=== PATIENT | female | born 1950 | race Caucasian/White ===

== ENCOUNTER 2016-07-27 07:47 | Day surgery (SDC) | payer MEDICARE ==
[2016-07-27] VITALS (8 sets, daily range): BP systolic 114–157; BP diastolic 83–98; PULSE 57–68; RESP 18–20; TEMP 97.5; O2SAT 92–98
[~2016-07-27] VITALS: Ht 170.2 cm; Wt 70.5 kg
[~2016-07-27 07:47] MED LIST: ALPR0.25 PO; AMLO10TA2 PO; CALC600T13 PO; CLON.1 PO; MOTR200T4 PO; ROSU40 PO
[2016-07-27] MEDS ORDERED: MULT-65 PO (08:38)
[2016-07-27 09:16] LABS: INTERNATIONAL NORMALIZED RATIO 0.9 RATIO; PROTHROMBIN TIME - PATIENT 10.2 SEC (9.8-11.6)
[2016-07-27] MEDS ORDERED: SODIUM CHLOR 0.9% 1000 ML IV SCH (10:00)
[2016-07-27] MEDS ORDERED: fentaNYL CITRATE 250 MCG/5 ML AMP ONE (11:05)
[2016-07-27] MEDS ORDERED: MIDAZOLAM HCL 5 MG/5 ML VIAL ONE (11:05)
--- NOTE | 2016-07-27 12:50 | RADRPT ---
EXAM DATE/TIME: 07/27/2016 12:35 [facility] COMPARISON: CT NEEDLE BIOPSY LUNG, LEFT, July 27, 2016, 11:14. INDICATIONS : Post left upper lobe lung biopsy. MEDICAL HISTORY : Hypertension. Aneurysm, abdominal. Uterine cancer. SURGICAL HISTORY : Pelvic surgery. ENCOUNTER: Initial ACUITY: 1 day PAIN SCORE: 0/10 LOCATION: Left upper chest FINDINGS: A single frontal expiratory view of the chest was performed. The lungs are symmetrically aerated and clear. No evidence of pneumothorax. Mediastinal structures are in the midline. The cardio-mediastinal contours and bronchopulmonary markings are unremarkable for an expiratory exam . Osseous structures are intact. CONCLUSION: Negative for pneumothorax. Irvin Monterroso MD FACR on July 27, 2016 at 12:48 Board Certified Radiologist. This report was verified electronically.
--- NOTE | 2016-07-27 13:27 | RADRPT ---
EXAM DATE/TIME: 07/27/2016 11:14 [facility] COMPARISON: No previous studies available for comparison. INDICATIONS : Left lung mass SEDATION TIME: 30 minutes BIOPSY SITE: MEDICATION(S): 1.) 3.5 mg midazolam (Versed) IV 2.) 175 mcg fentanyl (Sublimaze) IV DEVICE(S): 1.) 18 gauge Temno core biopsy needle MEDICAL HISTORY : Hypertension. Aneurysm, abdominal. Uterine ca SURGICAL HISTORY : Pelvic surgery ENCOUNTER: Initial ACUITY: 1 day PAIN SCORE: 0/10 LOCATION: Left Lung A total of two core specimen(s) were obtained and sent to the laboratory for pathologic evaluation. PROCEDURE: 1. CT guided lung biopsy. 2. Conscious sedation with continuous EKG and oximetry monitoring. 3. EKG and oximetry remained stable throughout the procedure. Prior to the procedure informed consent was obtained. Any appropriate prior imaging studies were rev iewed. Using automated exposure control and adjustment of the mA and/or kV according to patient size, radiation dose was kept as low as reasonably achievable to obtain optimal diagnostic quality images. The site was prepped in a sterile fashion. Full sterile technique was used, including cap, mask, serenity rile gloves and gown and a large sterile sheet. Hand hygiene and 2% chlorhexidine and/or betadine/al cohol prep was utilized per protocol for cutaneous antisepsis. The skin and subcutaneous tissues wer e infiltrated with local anesthetic solution. With CT guidance the previously identified target was localized. Biopsy was performed using the presc ribed needle as above. Adequate hemostasis was obtained with compression at the puncture site. Follow-up CT scan reveals no pneumothorax. Conscious sedation was performed with the prescribed dosages and duration as above in the presence of an independent trained radiology nurse to assist in the monitoring of the patient. EKG and oximetry remained stable throughout the procedure. The patient tolerated the procedure well and there were no complications. The patient was sent to Radiology Outpatient Unit in stable condition. CONCLUSION: Uncomplicated CT guided biopsy. Hugh Da Silva MD on July 27, 2016 at 13:26 Board Certified Radiologist. This report was verified electronically.
--- NOTE | 2016-07-27 14:25 | RADRPT ---
EXAM DATE/TIME: 07/27/2016 14:00 [facility] COMPARISON: CHEST EXPIRATION ONLY, July 27, 2016, 12:35. INDICATIONS : Post left upper lobe lung biopsy. MEDICAL HISTORY : Hypertension. Aneurysm, abdominal. Uterine cancer. SURGICAL HISTORY : Pelvic surery. ENCOUNTER: Subsequent ACUITY: 1 day PAIN SCORE: 0/10 LOCATION: Left upper chest FINDINGS: A single frontal expiratory view of the chest was performed. The lungs are symmetrically aerated and clear. No evidence of pneumothorax. Mediastinal structures are in the midline. The cardio-mediastinal contours and bronchopulmonary markings are unremarkable for an expiratory exam . Osseous structures are intact. CONCLUSION: Negative for pneumothorax.. Irvin Monterroso MD FACR on July 27, 2016 at 14:22 Board Certified Radiologist. This report was verified electronically.
[2016-10-19] MEDS ORDERED: IBUP-1129 PO (12:46)
[2016-10-22] MEDS ORDERED: OXYC1TAB63 PO (07:25)
== END 2016-07-27 15:20 | disposition home or self-care (01) ==
LOC: HRAD 07:47 → HRIP 07:50 → HRAD 15:20
PROVIDERS: ATTEND Internal Medicine Hematology
DX: R91.8 Other nonspecific abnormal finding of lung field (principal); C54.1 Malignant neoplasm of endometrium; I10 Essential (primary) hypertension
CPT/HCPCS: 32405; 71010; 77012; 85610; 88305; 88341; 88342; J2250; J3010; J7030